=== PATIENT | male | born 1955 | race African-American/Black ===

== ENCOUNTER 2019-07-02 19:00 | Emergency (ER) | payer MEDICAID ==
[~2019-07-02] VITALS: Ht 185.4 cm; Wt 100.0 kg
[2019-07-02] MEDS ORDERED: SODIUM CHLORIDE 0.9% 1,000 ML IV ONE ×2 (20:58→21:52)
[2019-07-02 21:34] LABS: BASOPHILS % 1.9 % (0.0-2.0); EOSINOPHILS % 7.7 % (0.0-5.0); HEMATOCRIT. 30.2 % (42.0-52.0); HEMOGLOBIN. 9.7 g/dL (14.0-18.0); LYMPHOCYTES % 30.1 % (20.0-50.0); MEAN CORPUSCULAR HEMOGLOBIN 27.9 pg (28.0-32.0); MEAN CORPUSCULAR VOLUME 86.6 fL (80.0-94.0); MEAN PLATELET VOLUME 8.9 fl (7.4-10.4); MONOCYTES % 11.1 % (2.0-8.0); NEUTROPHILS % 49.2 % (40.0-76.0); PLATELET 97 x1000/uL (130-400); RED BLOOD CELL COUNT 3.49 mill/uL (4.7-6.1); RED CELL DISTRIBUTION WIDTH 18.7 % (11.6-14.6)
[2019-07-02 21:40] LABS: CHLORIDE 113 mEq/L (98-107)
[2019-07-02 21:56] LABS: ETHANOL BLOOD 372 mg/dL
[2019-07-02] MEDS ORDERED: LORAZEPAM 2MG/ML CPJ IV ONE (22:00)
[2019-07-03 00:04] LABS: *BARBITURATES SCREEN URINE NEGATIVE (NEGATIVE)
[2019-07-03 00:05] LABS: *AMPHETAMINES SCREEN URINE NEGATIVE (NEGATIVE); *BENZODIAZEPINES SCREEN URINE NEGATIVE (NEGATIVE); *COCAINE SCREEN URINE NEGATIVE (NEGATIVE); METHADONE URINE SCREEN NEGATIVE (NEGATIVE); OPIATES URINE SCREEN NEGATIVE (NEGATIVE)
[2019-07-03 00:06] LABS: CANNABINOID URINE SCREEN NEGATIVE (NEGATIVE); PHENCYCLIDINE URINE SCREEN NEGATIVE (NEGATIVE)
[2019-07-03 02:10] VITALS: BP 134/82
[2019-07-03] MEDS ORDERED: ACETAMINOPHEN 500MG TABLET PO ONE (03:30)
== END 2019-07-03 07:19 | disposition home or self-care (01) ==
LOC: ER 19:12
DX: T51.0X1A Toxic effect of ethanol, accidental (unintentional), initial encounter (principal); S00.93XA Contusion of unspecified part of head, initial encounter; G92 Toxic encephalopathy; F10.20 Alcohol dependence, uncomplicated; M25.561 Pain in right knee; M25.512 Pain in left shoulder; E78.00 Pure hypercholesterolemia, unspecified; E11.9 Type 2 diabetes mellitus without complications; I10 Essential (primary) hypertension; F14.10 Cocaine abuse, uncomplicated; W22.8XXA Striking against or struck by other objects, initial encounter; Y93.89 Activity, other specified; Y92.89 Other specified places as the place of occurrence of the external cause; Y99.8 Other external cause status; Y90.8 Blood alcohol level of 240 mg/100 ml or more
CPT/HCPCS: 36415; 70450; 73030; 73560; 80053; 80305; 80320; 82550; 84443; 85025; 93005; 96361; 96374; 99284; J2060; J7030; Z7610; G0480

== ENCOUNTER 2019-07-03 07:46 | Emergency (ER) | payer MEDICAID ==
[~2019-07-03] VITALS: Ht 167.6 cm; Wt 90.0 kg
[2019-07-03 08:33] VITALS: BP 162/106
== END 2019-07-03 09:23 | disposition left against medical advice (07) ==
LOC: ER 08:44
DX: Z53.21 Procedure and treatment not carried out due to patient leaving prior to being seen by health care provider (principal)